=== PATIENT | male | born 1985 | race Two or more races ===

== ENCOUNTER 2022-03-19 10:34 | Emergency (ER) | payer MEDICAID ==
[~2022-03-19] VITALS: Ht 180.3 cm; Wt 62.6 kg
[2022-03-19 10:50] VITALS: BP 118/78
--- NOTE | 2022-03-19 13:26 | NUR ---
Multiple calls. NO response. [place]
== END 2022-03-19 13:27 | disposition home or self-care (01) ==
LOC: ER 10:55
DX: M25.511 Pain in right shoulder (principal)